=== PATIENT | female | born 1975 | race Caucasian/White ===

== ENCOUNTER 2016-08-06 13:01 | Emergency (ER) | payer OTHER ==
[~2016-08-06] VITALS: Ht 162.6 cm; Wt 59.1 kg
[2016-08-06 13:01] VITALS: TEMP 98.8
[2016-08-06 13:24] LABS: BASO % 0.5 % (0.0-2.0); EOS # 0.1 (0.0-0.7); EOS % 1.4 % (0-4.0); GRAN # 4.9 (1.4-6.5); HEMATOCRIT 38.9 % (37.0-47.0); HEMOGLOBIN 12.9 g/dl (12.5-16.0); LYMPH # 2.8 (1.2-3.4); LYMPH % 32.7 % (20.0-51.0); MEAN CELL VOLUME 90 fl (80.0-100.0); MEAN CORPUSCULAR HEMOGLOBIN 30 pg (27.0-31.0); MEAN CORPUSCULAR HGB CONC 33 g/dl (33.0-37.0); MEAN PLATELET VOLUME 9.6 fl (7.4-10.4); MONO # 0.7 (0.1-0.6); MONO % 8.2 % (1.7-9.3); PLATELET COUNT 257 K/mm3 (130-400); RED BLOOD COUNT 4.34 M/mm3 (4.10-5.30); REDCELL DISTRIBUTION WIDTH-CV 12.5 % (11.5-14.5); WHITE BLOOD COUNT 8.5 K/mm3 (4.8-10.8)
[2016-08-06 13:31] LABS: ADJUSTED CALCIUM 9.5 mg/dL (8.4-10.2); ALBUMIN 4.2 gm/dL (3.5-5.0); BILIRUBIN,TOTAL 0.6 mg/dL (0.0-1.0); CALCIUM 9.7 mg/dL (8.4-10.2); CREATININE, serum 0.58 mg/dL (0.52-1.25); POTASSIUM 4.1 mmol/L (3.4-5.0); TOTAL PROTEIN 7.6 gm/dL (6.4-8.2)
[2016-08-06] MEDS ORDERED: FLEXERIL 1010 MG/TAB PO (14:12)
[2016-08-06] MEDS ORDERED: NORCO 325 MG-51 TAB PO (14:12)
[2016-08-06 14:35] VITALS: BP 110/56; PULSE 86
== END 2016-08-06 14:40 | disposition home or self-care (01) ==
LOC: COL.ER 13:01
PROVIDERS: Emergency Medicine
DX: S13.9XXA Sprain of joints and ligaments of unspecified parts of neck, initial encounter (principal); S20.219A Contusion of unspecified front wall of thorax, initial encounter; S30.1XXA Contusion of abdominal wall, initial encounter; M41.9 Scoliosis, unspecified; Z98.890 Other specified postprocedural states; V49.50XA Passenger injured in collision with unspecified motor vehicles in traffic accident, initial encounter; Y93.I9 Activity, other involving external motion
CPT/HCPCS: J1885; J2060; J7030; Q9967